=== PATIENT | female | born 1955 ===

== ENCOUNTER → 2018-07-05 14:00 | Outpatient (REF) | payer OTHER, SELFPAY | LOC: LAB 14:00 | PROVIDERS: Visit Provider Dermatology | DX: L60.9 Nail disorder, unspecified (principal); L21.8 Other seborrheic dermatitis; L90.5 Scar conditions and fibrosis of skin; L82.1 Other seborrheic keratosis; D18.01 Hemangioma of skin and subcutaneous tissue; L81.4 Other melanin hyperpigmentation | CPT/HCPCS: 87102; 87107 ==